=== PATIENT | male | born 1990 | race African-American/Black ===

== ENCOUNTER 2018-04-05 12:46 | Emergency (ER) | payer SELFPAY ==
[~2018-04-05] VITALS: Ht 172.7 cm; Wt 72.6 kg
--- NOTE | 2018-04-05 12:49 | NUR ---
PT A/OX1, BIB [facility] AND ESCORTED BY PD. PER PARAMEDICS, PT WAS "BEHAVING ERRATIC" IN THE STREETS AND SNIFFING AEROSOL AND WHEN THE PARAMEDICS TOOK THE CAN OF AEROSOL AWAY FROM THE PT, PT SWUNG AT THE SENIOR BIOINFORMAT[employer] SCIENTIST AND WAS THEN HANDCUFFED BY PD. PT WAS ADMINISTERED 5 MG OF VERSED IN THE FIELD BY [facility] SENIOR BIOINFORMATICS SCIENTIST. PT IS CURRENTLY ASLEEP, BUT AROUSABLE. VS TACHY AT THIS TIME, ER MD AWARE. PT DOES NOT APPEAR TO BE IN ANY APPARENT DISTRESS AT THIS TIME. PD AT BEDSIDE AND PT CURRENTLY RESTRAINED (BLE) TO THE ER MADHURI W/ PD HANDCUFFS.
--- NOTE | 2018-04-05 12:58 | NUR ---
BLE HANDCUFFS REMOVED BY PD. NURSING CARDIOVASCULAR RN NOTIFIED, REQUESTED FOR 1:1 SITTER FOR SAFETY PERCAUTION.
--- NOTE | 2018-04-05 13:07 | NUR ---
[employer] TESTER AT BEDSIDE FOR 1:1 MONITOR.
[2018-04-05 13:55] LABS: BASOPHILS # (AUTO) 0.1 K/uL (0.0-8.0); BASOPHILS % (AUTO) 1.1 % (0.0-2.0); EOSINOPHILS % (AUTO) 0.6 % (0.0-7.0); HEMATOCRIT 36.1 % (36.7-47.1); HEMOGLOBIN 12.4 g/dL (12.5-16.3); LYMPHOCYTES # (AUTO) 1.5 K/uL (20.0-40.0); LYMPHOCYTES % (AUTO) 22.8 % (20.5-51.5); MEAN CORPUSCULAR HEMOGLOBIN 30.6 uug (23.8-33.4); MEAN CORPUSCULAR HGB CONC 35 g/dL (32.5-36.3); MEAN CORPUSCULAR VOLUME 88.7 fL (73.0-96.2); MONOCYTES # (AUTO) 0.5 K/uL (2.0-10.0); MONOCYTES % (AUTO) 7.7 % (0.0-11.0); NEUTROPHILS # (AUTO) 4.5 K/uL (1.8-8.9); NEUTROPHILS % (AUTO) 67.8 % (38.5-71.5); PLATELET COUNT (AUTO) 336 K/uL (152-348); RED BLOOD CELL COUNT(AUTO) 4.07 MIL/uL (4.06-5.63); WHITE BLOOD COUNT (AUTO) 6.6 K/uL (3.6-10.2)
[2018-04-05 14:01] LABS: CARBON DIOXIDE 28 mmol/L (21-32); CHLORIDE 104 mmol/L (98-107); CREATININE 0.8 mg/dL (0.6-1.3); GLUCOSE 97 mg/dL (74-106); POTASSIUM 3.5 mmol/L (3.5-5.1); UREA NITROGEN, BLOOD 11 mg/dL (7-18)
[2018-04-05 14:07] LABS: ALANINE AMINOTRANSFERASE 16 U/L (16-63); ALKALINE PHOSPHATASE 91 U/L (50-136); ASPARTATE AMINOTRANSFERASE 17 U/L (15-37); BILIRUBIN,DIRECT 0.2 mg/dL (0.0-0.2); BILIRUBIN,TOTAL 0.8 mg/dL (0.2-1.0); TOTAL PROTEIN, SERUM 6.9 g/dL (6.4-8.2)
[2018-04-05 14:09] LABS: ACETAMINOPHEN < 2.0 ug/mL (10-30)
[2018-04-05 14:10] LABS: ETHANOL < 3 MG/DL (0-0)
--- NOTE | 2018-04-05 14:25 | NUR ---
PT AWAKE AND ALERT, DENIES SI AND HI. ER MD AT BEDSIDE FOR PT UPDATE.
[2018-04-05 14:32] LABS: *BILIRUBIN,URIN NEGATIVE (NEGATIVE); *BLOOD, URINE NEGATIVE (NEGATIVE); *COLOR,URINE YELLOW (YELLOW); *KETONES,URINE NEGATIVE (NEGATIVE); LEUKOCYTE ESTERASE ,URINE NEGATIVE (NEGATIVE); NITRITE, URINE NEGATIVE (NEGATIVE); UGLUCOSE NEGATIVE (NEGATIVE)
--- NOTE | 2018-04-05 14:39 | NUR ---
PT PROVIDED W/ FOOD AND WATER. EATING COMFORTABLY IN BED AT THIS TIME.
[2018-04-05 14:41] LABS: *CLARITY,URINE CLOUDY (CLEAR)
[2018-04-05 14:42] LABS: SQUAMOUS EPITHELIAL CELL,UR FEW /HPF (NONE SEEN)
[2018-04-05 14:43] LABS: MUCUS,URINE MANY /LPF (0-FEW); URINE AMORPHOUS PHOSPHATES MANY /HPF
[2018-04-05 14:46] LABS: *AMPHETAMINE, URINE POSITIVE (NEGATIVE); *BARBITURATE, URINE NEGATIVE (NEGATIVE); *CANNABINOID, URINE POSITIVE (NEGATIVE); *COCCAINE, URINE NEGATIVE (NEGATIVE); *OPIATE, URINE NEGATIVE (NEGATIVE); *PHENCYCLIDINE SCREEN,URINE NEGATIVE (NEGATIVE)
--- NOTE | 2018-04-05 14:50 | NUR ---
Patient given written and verbal discharge instructions. Patient verbalizes understanding of instructions. Patient is ambulatory with steady gait. Refuses offer of longterm placement. Patient given list of available shelters in surrounding area. PT SELF-AMBULATED W/O DIFFICULTY. ALL BELONGINGS W/ PT. PT STATES HE WILL ARRANGE FOR HIS OWN TRANSPORTATION AND [facility]. [employer] SHOES PROVIDED FOR PT.
== END 2018-04-05 14:54 | disposition home or self-care (01) ==
LOC: ER 12:46
DX: R46.1 Bizarre personal appearance (principal); T42.4X5A Adverse effect of benzodiazepines, initial encounter; Y92.89 Other specified places as the place of occurrence of the external cause
CPT/HCPCS: 36415; 71045; 80048; 80076; 80307; 81001; 85025; 93005; 99284; G0480 ×2; G0481; A4663